=== PATIENT | male | born 1940 | race Caucasian/White ===

== ENCOUNTER 2020-04-16 09:11 | Outpatient (REF) | payer BC, SELFPAY | END 2020-04-16 09:12 | disposition home or self-care (01) | LOC: HO.SCI 09:11 | DX: Z13.89 Encounter for screening for other disorder (principal) ==

== ENCOUNTER 2020-05-08 12:35 | Outpatient (REF) | payer BC, SELFPAY ==
--- NOTE | 2020-05-08 | MR_ITS ---
MRI OF THE BRAIN WITHOUT IV CONTRAST INDICATION: Cerebellar ataxia. COMPARISON: None available. TECHNIQUE: Multiplanar multisequence MR imaging of the brain was obtained without IV contrast. FINDINGS: There is no hydrocephalus, extra-axial surface collection, or herniation. There is global cerebral volume loss and there is mild chronic microangiopathy. The major flow voids at the skull base are preserved. There is no acute infarct on diffusion-weighted imaging. There is no intracranial hemorrhage on the gradient recalled echo acquisition. The midline structures are normal. The cerebellar tonsils are normally positioned. The cerebellum and brainstem are normal. The craniocervical junction is normal. Osseous marrow signal intensity is homogenous. The visualized soft tissues are unremarkable. MR/MR head/brain wo con IMPRESSION: - No acute intracranial findings. No cerebellar abnormality identified on this noncontrast MRI. - There is global cerebral volume loss and there is mild chronic microangiopathy.
== END 2020-05-08 12:36 | disposition home or self-care (01) ==
LOC: HO.MRI 12:35
PROVIDERS: PCP Family Medicine; Visit Provider Psychiatry & Neurology Neurology
DX: G11.9 Hereditary ataxia, unspecified (principal)
CPT/HCPCS: 70551